=== PATIENT | female | born 1995 | race Hispanic/Latino ===

== ENCOUNTER 2017-05-03 04:32 | Emergency (ER) | payer MEDICAID ==
[2017-05-03 05:17] LABS: #Basophils 0.1 thou/uL (0.0-0.2); #Eosinphils 0.2 thou/uL (0.0-0.7); #Lymphocytes 3.1 thou/uL (1.20-3.40); #Monocytes 0.4 thou/uL (0.11-0.59); #Neutrophils 4.7 thou/uL (1.40-6.50); %Basophils 0.7 % (0.0-1.0); %Eosinophils 2.8 % (0.0-10.0); %Lymphocytes 36.2 % (28.0-48.0); Hematocrit 40.7 % (36.0-47.0); Mean Platelet Volume 7.4 fL (7.4-10.4); Red Blood Cell (RBC) Count 4.66 mill/uL (4.00-5.20); White Blood Cell (WBC) Count 8.5 thou/uL (4.8-10.8)
[2017-05-03] MEDS ORDERED: Ketorolac Tromethamine 30 MG/ML VIAL ONE (05:20)
[2017-05-03 05:39] LABS: ALT (SGPT) 33 U/L (8-55); AST (SGOT) 31 U/L (5-30); Alkaline Phosphatase 112 U/L (40-150); Anion Gap 14 mmol/L (10-20); BUN (Urea Nitrogen) 6 mg/dL (8.4-21.0); Bilirubin, Total 0.4 mg/dL (0.2-1.2); Calc. Creatinine Clearance 0 mL/min (70-130); Calcium 9.1 mg/dL (7.8-10.44); Carbon Dioxide 24 mmol/L (22-29); Chloride 104 mmol/L (98-107); Estimated GFR-MDRD Greater than 90; Globulin 3.7 g/dL (2.4-3.5); Lipase 11 U/L (8-78); Protein, Total 7.7 g/dL (6.0-8.3)
== END 2017-05-03 07:12 | disposition home or self-care (01) ==
LOC: ERS 04:32
DX: R10.30 Lower abdominal pain, unspecified (principal)
CPT/HCPCS: 80053; 83690; 84702; 84703; 85025; 96374; J1885

== ENCOUNTER 2019-03-18 22:00 | Day surgery (SDC) | payer OTHER ==
[2019-03-18 22:33] VITALS: TEMP 97.9; BMI 44.5
[2019-03-18 22:34] VITALS: BP 106/50
[2019-03-18] MEDS ORDERED: hydrALAZINE 20 MG/ML VIAL SLOW IVP PRN (23:55)
--- NOTE | 2019-03-19 00:33 | PRG ---
DATE OF SERVICE: 03/18/2019 PRIMARY OB: Umang Marcos MD CHIEF COMPLAINT: Pop. HISTORY OF PRESENT ILLNESS: The patient is a 23-year-old G4, P1 female with an intrauterine at 38 weeks and a day, who presented to Labor and Delivery today after experiencing a pop in her lower pelvis when she was moving a small piece of furniture. The patient denies any uterine contractions, vaginal bleeding, or leakage of fluid. She does report some mild discomfort. She denies any recent illness, fever, fall, headache, chest pain, or shortness of breath. She has had some nausea, but no vomiting. She denies diarrhea or constipation. Denies any new rashes, hip problems, knee problems, muscle weakness, vaginal bleeding, leakage of fluid, urinary urgency, or frequency. PAST MEDICAL HISTORY: Negative. PAST SURGICAL HISTORY: Negative. ALLERGIES: NO KNOWN DRUG ALLERGIES. MEDICATIONS: vitamins. SOCIAL HISTORY: Denies drug, alcohol, or tobacco use. OB LABS: Unavailable at time of dictation. REVIEW OF SYSTEMS: Per HPI. PHYSICAL EXAMINATION: VITAL SIGNS: Blood pressure is 106/50, heart rate of 120, respiratory rate of 14, saturating 100% on room air, temperature 97.9. GENERAL: She appears to be in no acute distress. She is alert, oriented, cooperative, and pleasant to interact with. HEAD: Normocephalic, atraumatic. LUNGS: Clear to auscultation bilaterally. HEART: Has some tachycardia with a regular rhythm. ABDOMEN: Gravid, soft, nontender. : Pubic symphysis has some tenderness to palpation. EXTREMITIES: Nontender, nonedematous. CERVIX: 1, 30 and -3 station per nursing staff. heart tracing shows a fetus with a baseline in the 150s with moderate long-term variability, positive 15 x 15 accelerations, no decelerations. The patient had some isolated contractions on the monitor. ASSESSMENT AND PLAN: The patient is a 23-year-old G4, P1 female with an intrauterine at 38 weeks and a day, who presented after experiencing some shifting in her pelvic joints. The patient has no obstetric complaints at this time. She has been given reassurance. She is scheduled for induction next Wednesday and has an appointment with Dr. Marcos on Wednesday that we encouraged to keep. She has been given term labor precautions. Fetus has reactive NST. Job ID: [id number]
== END 2019-03-18 22:55 | disposition home or self-care (01) ==
LOC: L&D/OP 22:00
PROVIDERS: ATTEND Obstetrics & Gynecology
DX: O99.89 Other specified diseases and conditions complicating pregnancy, childbirth and the puerperium (principal); M25.852 Other specified joint disorders, left hip; M25.851 Other specified joint disorders, right hip; Z3A.38 38 weeks gestation of pregnancy
CPT/HCPCS: 99282

== ENCOUNTER 2019-03-24 19:30 | Inpatient (IN) | payer OTHER ==
[~2019-03-24 19:30] MED LIST: Bupivacaine 0.25% HCL 30 ML VIAL ONE
[2019-03-24] MEDS ORDERED: Butorphanol Tartrate 1 MG/ML VIAL SLOW IVP PRN (20:19)
[2019-03-24] MEDS ORDERED: hydrALAZINE 20 MG/ML VIAL SLOW IVP PRN (20:19)
[2019-03-24] MEDS ORDERED: NS / Oxytocin 40 units/1000ml 1,000 ML IV PRN (20:19)
[2019-03-24] MEDS ORDERED: Lidocaine 1% (PF) 30 ML VIAL SC PRN (20:19)
[2019-03-24] MEDS ORDERED: HYDROcodone/Acetaminophen 5/325 mg Tablet PO PRN ×2 (20:19)
[2019-03-24] MEDS ORDERED: Promethazine HCl 25 MG/ML VIAL IM PRN (20:19)
[2019-03-24] MEDS ORDERED: Acetaminophen 500 MG TAB PO PRN (20:19)
[2019-03-24] MEDS ORDERED: Carboprost 250 MCG/ML AMP IM PRN (20:19)
[2019-03-24] MEDS ORDERED: Diphenoxylate HCl/Atropine Tablet PO PRN ×2 (20:19)
[2019-03-24] MEDS ORDERED: Methylergonovine 0.2 MG/ML VIAL IM PRN (20:19)
[2019-03-24] MEDS ORDERED: Misoprostol 200 MCG TAB PR PRN (20:19)
[2019-03-24] MEDS ORDERED: Ibuprofen 800 MG TAB PO PRN (20:19)
[2019-03-24] MEDS ORDERED: Zolpidem Tartrate 5 MG TAB PO PRN (20:19)
[2019-03-24] MEDS ORDERED: Ondansetron PF 4 MG/2 ML Vial IVP PRN (20:19)
--- NOTE | 2019-03-24 20:25 | PDOC.LDHP ---
Labor and Delivery H&P HPI: 23 y/o at 39 weeks and 0/7 days, who presents to L&D for term induction of labor, high risk for BMI of 45.1. Grav: 4 Para: 1 Current complications: other Abnormal US findings: No (Morbid Obesity, Hx of ) Current medications: pre-tameka vitamins Previous surgical history: none Allergies/Adverse Reactions: Allergies Allergy/AdvReac Type Severity Reaction Status Date / Time No Known Allergies Allergy Verified 03/18/19 22:33 Social history: none - Physical Exam Vital signs reviewed and normal: yes General: NAD Heart: RRR Lungs: CTAB Abdomen: gravid Extremeties: no edema FHT: category 1 - Assessment L&D Assessment: medically indicated induction - Plan Plan: admit to L&D, cervical ripening
[2019-03-24] MEDS ORDERED: NS w/ Oxytocin 10 units 500 ML IV SCH ×2 (20:30)
[2019-03-24 22:23] VITALS: BMI 47.8
[2019-03-24] MEDS: Lactated Ringer's 1,000 ML IV SCH (22:35)
[2019-03-24] MEDS: Misoprostol 100 MCG TAB VAG SCH (22:48)
[2019-03-24 22:53] LABS: Hemoglobin 11.4 g/dL (12.0-16.0); Mean Corpuscular Hemoglobin 25.9 pg (27.0-31.0); Mean Corpuscular Volume 78.5 fL (78.0-98.0); Mean Platelet Volume 8.6 fL (7.4-10.4); Platelet Count 241 thou/uL (130-400); RBC Distribution Width 14.7 % (11.5-14.5); Red Blood Cell (RBC) Count 4.41 mill/uL (4.20-5.40); White Blood Cell (WBC) Count 8.4 thou/uL (4.8-10.8)
[2019-03-24 23:42] LABS: HBSAg Index 0.22 S/CO (0-0.99); Hep B Surf Ag Non-Reactive S/CO (NonReactive); Syphilis Antibody Nonreactive (Nonreactive); Syphilis Antibody Index 0.06 S/CO (<1.00 Non-Reactive)
[2019-03-25] MEDS: Misoprostol 100 MCG TAB VAG SCH ×3 (02:49→17:58)
[2019-03-25] MEDS: Lactated Ringer's 1,000 ML IV SCH ×2 (06:01→12:25)
[2019-03-25] MEDS ORDERED: Fentanyl 4 mcg/Bup 0.1% Cadd 100 ML ONE (12:15)
[2019-03-25] MEDS ORDERED: ePHEDrine/0.9% NaCl/PF SYRINGE 50 mg/10 ml SLOW IVP PRN (12:59)
[2019-03-25] MEDS ORDERED: Naloxone HCl 0.4 mg/ml Vial IVP PRN ×2 (12:59)
[2019-03-25] MEDS ORDERED: Promethazine HCl 25 MG/ML VIAL IM PRN ×2 (12:59→16:49)
[2019-03-25] MEDS ORDERED: Ondansetron PF 4 MG/2 ML Vial IVP PRN ×2 (12:59→16:49)
[2019-03-25] MEDS ORDERED: Acetaminophen 325 MG TAB PO PRN (12:59)
[2019-03-25] MEDS ORDERED: diphenhydrAMINE 50 MG/ML VIAL IVP PRN (12:59)
[2019-03-25] MEDS ORDERED: Lactated Ringer's 500 ML IV PRN (12:59)
[2019-03-25] MEDS ORDERED: Fentanyl 4 mcg/Bupivacaine 0.1% Cassette 100 ML EPIDURAL SCH (13:00)
[2019-03-25] MEDS ORDERED: Communication Order-Pharmacy FS SCH (13:00)
[2019-03-25] MEDS: NS / Oxytocin 40 units/1000ml 1,000 ML IV SCH ×2 (14:11→18:13)
[2019-03-25] MEDS ORDERED: diphenhydrAMINE 25 MG CAP PO PRN (16:49)
[2019-03-25] MEDS ORDERED: Misoprostol 200 MCG TAB VAG PRN (16:49)
[2019-03-25] MEDS ORDERED: HYDROcodone/Acetaminophen 5/325 mg Tablet PO PRN ×2 (16:49)
[2019-03-25] MEDS ORDERED: Lanolin Ointment 7 GM TUBE TOP PRN (16:49)
[2019-03-25] MEDS ORDERED: Preparation H Ointment 28 GM TUBE PR PRN (16:49)
[2019-03-25] MEDS ORDERED: Milk Of Magnesia 30 ML UDCUP PO PRN (16:49)
[2019-03-25] MEDS ORDERED: Benzocaine-Menthol 82.5 ML CAN TOP PRN (16:49)
[2019-03-25] MEDS ORDERED: Methylergonovine 0.2 MG/ML VIAL IM PRN (16:49)
[2019-03-25] MEDS ORDERED: Zolpidem Tartrate 5 MG TAB PO PRN (16:49)
[2019-03-25] MEDS ORDERED: Bisacodyl 10 MG SUPP PR PRN (16:49)
[2019-03-25] MEDS ORDERED: hydrALAZINE 20 MG/ML VIAL SLOW IVP PRN (16:49)
[2019-03-25] MEDS: Ferrous Sulfate 325 MG TAB PO SCH (17:07)
[2019-03-25] MEDS: Ibuprofen 800 MG TAB PO SCH (17:31)
[2019-03-25] MEDS ORDERED: NS / Oxytocin 40 units/1000ml 1,000 ML IV SCH (17:45)
[2019-03-25] MEDS: Docusate Calcium (SURFAK) 240 MG CAP PO SCH (20:23)
[2019-03-25] MEDS ORDERED: Adacel (T-DAP) 0.5 ML SYRINGE IM ONE (21:00)
[2019-03-25] MEDS ORDERED: Varicella virus, LIVE 0.5 ML VIAL SC ONE (21:00)
[2019-03-25] MEDS ORDERED: Measles/Mumps/Rubella 10 MCG/0.5 ML VIAL SC ONE (21:00)
[2019-03-25] MEDS ORDERED: FLU VACC QS2019-20(6MOS UP)/PF 60 MCG/0.5 ML SYRINGE IM ONE (21:00)
[2019-03-26] MEDS: Ibuprofen 800 MG TAB PO SCH ×2 (00:42→08:41)
--- NOTE | 2019-03-26 03:16 | PDOC.PP ---
Post Progress Note Post Day #: 1 PO intake tolerated: yes Flatus: yes Ambulation: yes Vital Signs (12 hours) Temp Pulse Resp BP Pulse Ox 03/26/19 00:30 97.7 F 82 16 109/59 L 96 03/25/19 20:00 98.3 F 74 16 106/67 96 03/25/19 18:06 98.0 F 89 19 102/67 100 03/25/19 17:00 98.2 F 75 20 116/73 98 Weight Weight 245 lb - Physical Examination General: NAD Cardiovascular: no m/r/g, RRR Respiratory: clear to auscultation bilaterally, non-labored breathing Abdominal: + bowel sounds, lochia, no distention Extremities: negative homans (B) Neurological: no gross focal deficits Psychiatric: A&Ox3, normal affect Result Diagrams: 03/24/19 22:31 Additional Labs: Post Labs Blood Type O POSITIVE 03/24/19 22:31 Hep Bs Antigen Non-Reactive S/CO (NonReactive) 03/24/19 22:31
[2019-03-26 05:03] LABS: Hemoglobin 11.1 g/dL (12.0-16.0); Mean Corpuscular HGB CONC 33.3 g/dL (32.0-36.0); Mean Corpuscular Hemoglobin 26.1 pg (27.0-31.0); Mean Corpuscular Volume 78.3 fL (78.0-98.0); Mean Platelet Volume 8.5 fL (7.4-10.4); Platelet Count 194 thou/uL (130-400); RBC Distribution Width 14.5 % (11.5-14.5); Red Blood Cell (RBC) Count 4.26 mill/uL (4.20-5.40); White Blood Cell (WBC) Count 10.8 thou/uL (4.8-10.8)
--- NOTE | 2019-03-26 06:05 | DN ---
DATE OF PROCEDURE: 03/25/2019 TIME: At 1409, [place] Daylight Savings Time. PREOPERATIVE DIAGNOSIS: Intrauterine at 39 weeks with a term induction of labor. POSTOPERATIVE DIAGNOSIS: Intrauterine at 39 weeks with a term induction of labor. PROCEDURE PERFORMED: Spontaneous vaginal delivery over first-degree laceration of the perineum. FINDINGS: Viable female , weighing 3227 g or 7 pounds 2 ounces, Apgars 8 and 9. ESTIMATED BLOOD LOSS: 150 mL. COMPLICATIONS: None. PROCEDURE IN DETAIL: The patient presented to [facility] where she was admitted to the labor and delivery service. The patient underwent a normal and uneventful labor with normal cervical dilatation until she was found to be completely dilated. She was then allowed to push and was able to bring the baby down and delivered the baby in a vertex presentation without difficulties. Once the head delivered in occiput anterior position, the shoulders followed spontaneously along with the rest of the baby's body. Once out the baby's mouth and nose were bulb suctioned. The cord was clamped and cut and baby was handed to waiting attendants. Cord blood was collected. Gentle fundal massage was performed and the placenta delivered intact without problems. Hemostasis was assured. Quantitative blood loss was calculated. Inspection of the cervix, vaginal vault, and perineum did not reveal any lacerations needing suturing. Once again, hemostasis was within normal limits and the patient was allowed to recover in the labor and delivery room. Baby went to nursery. Job ID: [id number]
[2019-03-26 08:40] VITALS: BP 123/63; TEMP 98.3
[2019-03-26] MEDS: Docusate Calcium (SURFAK) 240 MG CAP PO SCH (08:41)
[2019-03-26] MEDS: Ferrous Sulfate 325 MG TAB PO SCH ×2 (08:43→08:45)
[2019-03-26] MEDS ORDERED: Prenatal Vitamin 1 TAB PO SCH (09:00)
== END 2019-03-26 16:37 | disposition home or self-care (01) | DRG 807 ==
LOC: L&D 21:44 → 3SE 03-25 16:55
PROVIDERS: ADMIT Obstetrics & Gynecology; ATTEND Obstetrics & Gynecology
PROC: 10E0XZZ Delivery of Products of Conception, External Approach (ICD-10-PCS; principal; 2019-03-25)
PROC: 10907ZC Drainage of Amniotic Fluid, Therapeutic from Products of Conception, Via Natural or Artificial Opening (ICD-10-PCS; 2019-03-25)
PROC: 3E033VJ Introduction of Other Hormone into Peripheral Vein, Percutaneous Approach (ICD-10-PCS; 2019-03-25)
PROC: 3E0P7VZ Introduction of Hormone into Female Reproductive, Via Natural or Artificial Opening (ICD-10-PCS; 2019-03-25)
DX: O99.214 Obesity complicating childbirth (principal); Z37.0 Single live birth; E66.01 Morbid (severe) obesity due to excess calories; Z3A.39 39 weeks gestation of pregnancy; O70.0 First degree perineal laceration during delivery
CPT/HCPCS: 36415; 85027; 86780; 86850; 86900; 86901; 87340; 90715; 90716; J2590; S0020

== ENCOUNTER 2023-01-30 21:14 | Emergency (ER) | payer OTHER, SELFPAY ==
[2023-01-30] MEDS ORDERED: Amoxicillin/Potassium Clav 875 MG TAB ONE (22:33)
[2023-01-30] MEDS ORDERED: Acetaminophen 500 MG TAB ONE (22:33)
== END 2023-01-30 22:44 | disposition home or self-care (01) ==
LOC: ERS 21:14
DX: K04.7 Periapical abscess without sinus (principal)
CPT/HCPCS: 99282